=== PATIENT | female | born 1980 | race Asian ===

== ENCOUNTER 2016-04-28 14:47 | Emergency (ER) | payer SELFPAY ==
[~2016-04-28] VITALS: Ht 160 cm; Wt 54.4 kg
[2016-04-28 15:07] VITALS: BP 104/70
[2016-04-28] MEDS ORDERED: Ipratropium 0.02% Inh Soln 2.5ml UD HHN ONE (15:15)
[2016-04-28] MEDS ORDERED: Albuterol ud Inhalation HHN ONE (15:15)
[2016-04-28] MEDS ORDERED: Dexamethasone 4mg/ml vial IVP ONE ×2 (16:00)
--- NOTE | 2016-04-28 16:21 | Diagnostic Imaging Report ---
Indication: Chest Pain Comparison: None A single view chest radiograph was obtained. Findings: Cardiomediastinal appearance is within normal limits for age. Pulmonary vascularity is appropriate. The diaphragmatic contour is smooth and costophrenic angles are sharp. No pleural effusions are identified. The bones are unremarkable. Impression: No acute findings
[2016-04-28] MEDS: Ipratropium 0.02% Inh Soln 2.5ml UD HHN SCH ×3 (16:26→16:28)
[2016-04-28] MEDS: Albuterol ud Inhalation HHN SCH ×3 (16:26→16:28)
[2016-04-28] MEDS ORDERED: LEVAQUIN500 MG ORAL (17:23)
[2016-04-28] MEDS ORDERED: ROBITUSSIN COU118 M4 PO (17:23)
[2016-04-28 18:50] VITALS: BP 90/61
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
== END 2016-04-28 18:50 | disposition home or self-care (01) ==
LOC: EDBD 14:47 → EMR 15:13
DX: J18.9 Pneumonia, unspecified organism (principal); F17.210 Nicotine dependence, cigarettes, uncomplicated
CPT/HCPCS: 71010; 80300; 81025; 94640; 94664; 96374; 96375; 99284; J1100; J1956

== ENCOUNTER 2018-07-14 15:44 | Emergency (ER) | payer SELFPAY ==
[~2018-07-14] VITALS: Ht 167.6 cm; Wt 59.0 kg
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
[~2018-07-14 15:44] MED LIST: LEVAQUIN500 MG ORAL; NKM; ROBITUSSIN COU118 M4 PO
[2018-07-14 15:47] VITALS: BP 102/68
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
--- NOTE | 2018-07-14 17:08 | NUR ---
ED Nurse Note: patient taken down for xray
[2018-07-14] MEDS ORDERED: TYLENOL EXTRA500 MG ORAL (18:05)
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
[2018-07-14 18:43] VITALS: BP 102/68
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
== END 2018-07-14 18:25 | disposition home or self-care (01) ==
LOC: EDBD 15:44 → EMR 17:45
DX: S00.83XA Contusion of other part of head, initial encounter (principal); R68.84 Jaw pain; Y04.2XXA Assault by strike against or bumped into by another person, initial encounter
CPT/HCPCS: 70110; 99283